=== PATIENT | female | born 1970 | race Caucasian/White ===

== ENCOUNTER 2020-10-17 04:11 | Emergency (ER) | payer BC, SELFPAY ==
[2020-10-17 04:17] VITALS: BP 179/105; PULSE 78; RESP 18; TEMP 36.4; O2SAT 94
--- NOTE | 2020-10-17 04:21 | ED.GENADUL_ITS ---
Discharge Plan Disposition Patient Disposition: HOME Condition: Stable Discharge Details Clinical Impression: Retained tampon Primary Care Provider: None,None ED Provider: Robin Elliott Home Meds and New Rx's Prescriptions: Continued ibuprofen 800 MG tablet 800 mg PO Q8H PRNQty: 20 RF: 0 Discharge Instructions Additional Instructions: follow up with your primary care provider or women's wellness provider as needed if you have severe abdomen pain or feel more ill return to the emergency department Medical Decision Making patient states she has a tampon she can't remove and here to have it removed, denies fevers, abdomen pain or other symptoms, appears well systemically. Will have nursing set up for attempt at removal . States she placed the tampon in last night I had the patient relax her legs to the side on the stirrups and visualizes tampon string coming out of the vagina. With gentle traction I was able to remove intact tampon. Remains asymptomatic, will d/c home HPI General Mode of arrival: ambulatory . Date/Time Provider Initiated Documentation: 10/17/20 04:12 . Limitations to Documentation: no limitations . Information obtained by: patient . History of Present Illness 50 year old F presents to the emergency department with the chief complaint of stuck tampon, described as moderate, and it has been constant. No relieving factors improve symptom(s), No exacerbating factors reported . Patient notes no other symptoms.. 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: 3 Review of Systems All systems reviewed & are unremarkable except as noted in HPI and below Constitutional Constitutional: Denies chills, Denies fever(s) and Denies weakness Cardiovascular Cardiovascular: Denies chest pain and Denies dyspnea Respiratory Respiratory: Denies cough and Denies dyspnea Gastrointestinal Gastrointestinal: Denies abdominal pain, Denies nausea and Denies vomiting Musculoskeletal Musculoskeletal: Denies joint swelling Neurologic Neurologic: Denies weakness PFSH Social History Smoking/Tobacco Use Status: Never Smoking risk assessment performed?: Yes Alcohol Intake: current Alcohol Intake frequency: a few times a month Drug use: Never Do you feel safe at home: Yes Do you feel safe in your relationship?: Yes Exam Const General: no acute distress Orientation: alert HENMT Head: normal to inspection Ears: external ears normal General nose exam: external nose normal Mouth: moist mucous membranes Eyes General: appearance normal, both eyes and all related structures Neck Neck: normal visual inspection Resp Effort & Inspection: normal respiratory effort and able to speak in complete sentences Cardio Rate: regular rate GI Palpation: soft and nontender Skin General skin exam: no rashes or lesions noted Neuro General: patient alert and patient oriented x3 Extrem General: normal to inspection Psych Mental Status: mental status grossly normal Course Vital Signs Vital signs: Vital Signs Temperature 36.4 C L 10/17/20 04:17 Pulse 78 10/17/20 04:17 Respiratory Rate 18 10/17/20 04:17 Blood Pressure 179/105 H 10/17/20 04:17 Pulse Oximetry 94 10/17/20 04:17 Temperature 36.4 C L 10/17/20 04:17 Temperature Source Skin 10/17/20 04:17 Pulse 78 10/17/20 04:17 Respiratory Rate 18 10/17/20 04:17 Blood Pressure 179/105 H 10/17/20 04:17 Pulse Oximetry 94 10/17/20 04:17 Pain Level 3 10/17/20 04:17
[2020-10-17 04:38] VITALS: BP 171/99
== END 2020-10-17 04:40 | disposition home or self-care (01) ==
PROVIDERS: Emergency Provider Emergency Medicine
DX: T19.2XXA Foreign body in vulva and vagina, initial encounter (principal)
CPT/HCPCS: 99284; 99283

== ENCOUNTER 2021-08-06 22:26 | Emergency (ER) | payer BC, SELFPAY ==
--- NOTE | 2021-08-06 22:30 | DI.RAD_ITS ---
Exam(s) XR ANKLE RT COMPLETE EXAM: XR ANKLE RT COMPLETE CLINICAL HISTORY: trauma. TECHNIQUE: 2D digital imaging was performed. COMPARISON: No exams were available for comparison FINDINGS: There is a fractures seen extending obliquely through the distal fibula with some dorsal displacement and angulation. There is also fracture visible of the posterior malleolus extending to the articula r surface. There is posterior subluxation of the talus with respect to the distal tibia. There is m arked widening of the medial ankle mortise. No talar dome defect is seen. There are degenerative ch anges at the malleoli with chronic appearing adjacent bony densities. There are prominent calcaneal spurs. Degenerative changes are also noted in the tarsal region. IMPRESSION: Distal tibial and fibular fractures with posterior subluxation of the talus. DATA REPOSITORY: RADIATION DOSE DELIVERED:
--- NOTE | 2021-08-06 22:30 | RT.EKG_ITS ---
APPROVED REPORT Exam: Resting ECG Reason for Exam: pre-procedure Patient Location: E HR:78 bpm ECG Measurements Heart Rate 78 AXIS HI 167 P 48 QRSd 98 QRS -51 QT 384 T 53 QTc 438 Conclusion Sinus rhythm...normal P axis, V-rate 60- 99 Left anterior fascicular block...axis(240,-40), init forces inf ST elev, probable normal early repol pattern...ST elevation, age<54 I have reviewed and interpreted ECG and agree with software generated interpretation.
[2021-08-06 22:33] VITALS: BP 172/98; PULSE 88; RESP 20; TEMP 37; O2SAT 100
--- NOTE | 2021-08-06 22:43 | W.ED.GENAD ---
Discharge Plan Disposition Patient Disposition: HOME Condition: Stable Discharge Details Clinical Impression: Fracture of ankle, right, closed Primary Care Provider: None,None ED Provider: Matt Fernandezs and New Rx's Prescriptions: New hydrocodone-acetaminophen 5-325 mg tablet 1 tab PO Q6H PRNQty: 10 0RF Discontinued ibuprofen 800 MG tablet 800 mg PO Q8H PRNQty: 20 0RF Discharge Instructions Instructions: Ankle Fracture (ED), Crutch Instructions (ED) Additional Instructions: Keep your leg elevated and ice on/off throughout the day. May use acetaminophen or ibuprofen pain and the hydrocodone/acetaminophen for severe pain. Do not bear weight on the right. Use crutches. Call orthopedics in morning for follow up appointment. Return to ED for worsening pain, discolored toes, numbness to toes, other concerns. Stand Alone Forms: Work Release Referrals: Nakul Ortiz MD [ [facility] STAFF PHYSICIAN] - Medical Decision Making Patient presents to the ED with right ankle injury with obvious deformity. She is neurovascularly intact. IV established and morphine given for pain control. Labs and EKG done for preop evaluation. X-ray ordered. X-ray showed trimalleolar fracture with disruption of the mortise with subluxation of the joint. Fracture needed to be reduced before splinting and this was discussed with patient. Also discussed procedural sedation using fentanyl and Versed. She had last ate around 5 or 6 PM. Last had p.o. intake of soda at 10 PM. Laboratory studies and EKG look good. Patient was given a total of 300 mcg of fentanyl and 3 mg of Versed for reduction. Posterior splint applied. Post reduction x-ray with good results. Patient will be non-weightbearing and is to contact orthopedic in the morning for follow-up. She is instructed to keep her leg elevated and ice. She was given prescription for hydrocodone/acetaminophen for severe pain. Return to ED for uncontrolled pain, discolored toes, distal numbness. Lab Data Lab results reviewed: Yes I reviewed the patient's lab results. ECG Data Attestation: I personally reviewed and interpreted this ECG (s) as follows: Prior ECG tracings: available for review Interpretation: see EKG HPI General Mode of arrival: wheelchair. Date/Time Provider Initiated Documentation: 08/06/21 22:43. Limitations to Documentation: no limitations. Information obtained by: patient and RN notes reviewed. HPI Narrative: Patient presents to ED with right ankle injury. Patient reports slipping and falling outside on ice. She denies head strike. There was no loss of consciousness. She has pain, deformity, swelling to the right ankle. She denies injury elsewhere. Specifically she denies neck pain, back pain, chest pain, shortness of breath, other traumatic injury. Related Data Home Medications Medication Instructions Recorded Confirmed hydrocodone 5 mg-acetaminophen 325 1 tab PO Q6H PRN #10 tab 08/07/21 mg tablet Previous Rx's Medication Instructions Recorded hydrocodone 5 mg-acetaminophen 325 1 tab PO Q6H PRN #10 tab 08/07/21 mg tablet Allergies Allergy/AdvReac Type Severity Reaction Status Date / Time No Known Allergies Allergy Unverified 08/06/21 22:45 General THEODORE: 3 Review of Systems Narrative: As documented in HPI otherwise negative as below. Const: no fever, chills, weakness Resp: no cough, SOB, pleuritic pain CV: no CP, diaphoresis, edema, syncope GI: no abdominal pain, nausea, vomiting, diarrhea Neuro: no headache, numbness, focal weakness, confusion PFSH All Active Problems Fracture of ankle, right, closed (Acute) Medical History No significant past medical history Surgical History No significant past surgical history Social History Smoking/Tobacco Use Status: Never Smoking risk assessment performed?: Yes Alcohol Intake: current Alcohol Intake frequency: a few times a month Drug use: Never Do you feel safe at home: Yes Do you feel safe in your relationship?: Yes Exam Narrative Exam Narrative: Const: WDWN female in NAD. HEENT: NC/AT. Normal facial exam. Neck: Supple. Trachea midline. Lungs: Normal respiratory effort. Lungs are clear. Cor: RRR without murmur/gallop. Good distal pulses. GI: Soft. NT/ND. Back: Normal ROM Neuro: A+O x 3. Normal speech, mentation, gait. Cranial nerves II - XII grossly intact. No gross motor or sensory deficit. Ext: No C/C/E. Deformity and swelling around the right ankle. No tenderness proximal fibular head. No right foot tenderness. Neurovascularly intact distally. Skin: Warm and dry without laceration. Procedures Orthopedic Fracture Reduction Fracture #1: Time Out Performed: Yes Side: right Fracture Reduction Location: tibia and fibula Analgesia: procedural sedation Technique: traction/counter-traction Post Reduction X-rays Demonstrate: acceptable reduction Post-reduction neuro exam: intact and no change Post-reduction vascular exam: intact and no change Splint Applied: Yes Patient Tolerated Procedure: well Orthopedic Splinting/Casting Injury #1: Side: right Lower Extremity Injury Location: ankle Lower Extremity Immobilizer: posterior splint Other Orthopedic Equipment: walker Procedural Sedation Indication: fracture/dislocation reduction ASA Class: I Time of Last PO Intake: 22:00 Preparation: manager monitoring applied, pulse oximeter, capnometry used, supplemental O2 applied, suction/airway equipment at bedside and IV secured Fentanyl: IV Fentanyl dose (mcg): 300 Midazolam: IV Midazolam dose (mg): 3 Patient Tolerated Procedure: well and no complications Complications: none
[2021-08-06] MEDS: MORPHine 4 MG/ML SYR IVP (22:56)
[2021-08-06 23:07] LABS: Abs Immature Grans 0.03 10^3/uL (0.0-0.06); Absolute Basophil Count 0.05 10^3/uL (0.0-0.2); Absolute Eosinophil Count 0.25 10^3/uL (0.0-0.7); Absolute Lymphocyte Count 2.45 10^3/uL (1.2-3.4); Absolute Monocyte Count 0.84 10^3/uL (0.1-0.8); Basophils % 0.6; Eosinophils % 3.2; HCT 40.8 % (36.0-46.0); HGB 12.3 g/dL (11.2-15.7); Immature Grans % 0.4; Lymphocytes % 31.7; MCH 25.6 pg (27.0-33.0); MCHC 30.1 % (32.0-36.0); MCV 84.8 fL (80-95); MPV 9.6 fL (8.0-11.0); Monocytes % 10.9; Neutrophils % 53.2; Nucleated RBC 0 %; Platelet Count 405 10^3/uL (130-400); RBC 4.81 10^6/uL (3.93-5.22); RDW 14.1 % (11.7-14.6); RDW-SD 43.5 fL; WBC 7.72 10^3/uL (4.4-10.8)
[2021-08-06 23:21] LABS: ALT 25 U/L (14-59); AST 21 U/L (15-37); Albumin 3.1 g/dL (3.4-5.0); Alkaline Phosphatase 118 U/L (46-116); Anion Gap 7.3 mmol/L (3-11); BUN 11 mg/dL (7-18); Bilirubin, Total 0.2 mg/dL (0.2-1.0); CO2 27.7 mmol/L (21.0-32.0); CREATININE 0.9 mg/dL (0.55-1.02); Calcium 8.4 mg/dL (8.5-10.1); Chloride 107 mmol/L (98-107); Glucose 110 mg/dL (74-106); Potassium 3.9 mmol/L (3.5-5.1); Sodium 142 mmol/L (136-145); Total Protein 7.4 g/dL (6.4-8.2)
--- NOTE | 2021-08-06 23:44 | DI.VRAD_ITS ---
Addendum created by Kurt Collins MD on 08/07/2021 12:26:58 AM EST: Possible fractures of the Achilles and plantar spurs. Initial report created on 08/06/2021 11:43:55 PM EST: PROCEDURE INFORMATION: Exam: XR Right Ankle Exam date and time: 08/06/2021 10:46 PM Age: 51 years old Clinical indication: Pain; Ankle; Right; Patient HX: Trauma TECHNIQUE: Imaging protocol: XR Right ankle. Views: 3 or more views. COMPARISON: No relevant prior studies available. FINDINGS: Bones/joints: There is evidence of prior bimalleolar right ankle fractures. There is a superimpose acute fracture of the distal right fibula. There is an acute fracture of the posterior malleolus of the right tibia. There is disruption of the ankle mortise with the distraction and subluxation of the tibia. Noninflamed enthesophyte seen within the region of the Achilles tendon.There is a noninflamed plantar enthesophyte. Osteophyte at the level of the dorsal tarsus may represent anterior impingement syndrome. Soft tissues: There is extensive soft tissue swelling of the right ankle. There is soft tissue swelling of the distal right lower leg. Vasculature: There are venous calcifications present. IMPRESSION: 1. There is a superimposed acute fracture of the distal right fibula. There is an acute fracture of the posterior malleolus of the right tibia. There is disruption of the ankle mortise with the distraction and subluxation of the tibia. 2. Osteophyte at the level of the dorsal tarsus may represent anterior impingement syndrome. 3. There is extensive soft tissue swelling of the right ankle. 4. There is soft tissue swelling of the distal right lower leg. Dictated and Authenticated by: Kurt Collins MD. Ordering:JOSE Gutierrez MD
[2021-08-06] MEDS: fentaNYL 250 MCG/5 ML VIAL ×4 (23:51→23:58)
[2021-08-06] MEDS: Midazolam 2 MG/2 ML VIAL 3 MG IVP ×2 (23:53→23:56)
[2021-08-07] VITALS (15 sets, daily range): BP systolic 129–174; BP diastolic 70–104; PULSE 79–101; RESP 11–19; O2SAT 95–98
[2021-08-07] MEDS: Midazolam 2 MG/2 ML VIAL 3 MG IVP
--- NOTE | 2021-08-07 | DI.RAD_ITS ---
Exam(s) XR ANKLE RT 2V EXAM: XR ANKLE RT 2V CLINICAL HISTORY: Post-reduction film.. TECHNIQUE: 2D digital imaging was performed. COMPARISON: CR,XR XR ANKLE RT COMPLETE from 08/06/2021 FINDINGS: AP and lateral portable views were performed. There has been improvement in the alignment of the dis mansoor fibular fracture as well as reduction of the previously noted posterior subluxation of the talus with respect to the tibia. There is improved alignment of the posterior malleolar fracture. Soft ti ssue swelling is again noted. There are chronic bony density seen beneath the malleoli. Prominent calcaneal spurs. IMPRESSION: Improvement of alignment of distal tibial and fibular fractures and subluxation. DATA REPOSITORY: RADIATION DOSE DELIVERED:
[2021-08-07] MEDS: fentaNYL 250 MCG/5 ML VIAL ×2 (00:01→00:06)
--- NOTE | 2021-08-07 00:15 | DI.RAD_ITS ---
Exam(s) XR ANKLE RT COMPLETE EXAM: XR ANKLE RT COMPLETE CLINICAL HISTORY: post reduction/splinted. TECHNIQUE: 2D digital imaging was performed. COMPARISON: CR,XR XR ANKLE RT 2V from 08/07/2021 FINDINGS: A posterior splint has been placed. The distal fibular fracture is unchanged in alignment from the p ortable exam performed earlier the same day. Chronic bony densities are again noted beneath both mal leoli. There is widening of the medial ankle mortise. Soft tissue swelling is present. There are p rominent plantar calcaneal spur as well as spurring at the dorsum of the tarsal region.. IMPRESSION: Status post splint placement. No change in alignment. DATA REPOSITORY: RADIATION DOSE DELIVERED:
--- NOTE | 2021-08-07 00:26 | DI.VRAD_ITS ---
PROCEDURE INFORMATION: Exam: XR Right Ankle Exam date and time: 08/07/2021 12:17 AM Age: 51 years old Clinical indication: Other: Post-reduction film TECHNIQUE: Imaging protocol: XR Right ankle. Views: 1 or 2 views. COMPARISON: CR XR ANKLE RT COMPLETE 08/06/2021 11:11 PM FINDINGS: Bones/joints: There is been marked improvement alignment position of the fractures of the right ankle. Minimal displacement present at the fibular fracture and improved appearance to the ankle mortise. Old chronic fractures again are evident. Fractures of the the plantar and Achilles tendon attachments may be present although these may be chronic findings as well. Soft tissues: There is extensive soft tissue swelling of the right foot and ankle. IMPRESSION: Improvement in appearance of the right ankle fracture status post reduction. Dictated and Authenticated by: Kurt Collins MD. Ordering:JOSE Gutierrez MD
--- NOTE | 2021-08-07 00:45 | DI.VRAD_ITS ---
PROCEDURE INFORMATION: Exam: XR Right Ankle Exam date and time: 08/07/2021 12:25 AM Age: 51 years old Clinical indication: Device placement; Other: Post-reduction, splinted RT ankle TECHNIQUE: Imaging protocol: XR Right ankle. Views: 3 or more views. COMPARISON: CR XR ANKLE RT 2V 08/07/2021 12:00 AM FINDINGS: Bones/joints: The patient is been placed in a dorsal splint. There is marked improvement in the appearance of the fibular fracture fracture of the tibia and dislocation at the level of the tibial plateau. Possible plantar and Achilles tendon spurs and dorsal tarsal osteophytes again visualized. Soft tissues: There is soft tissue swelling. No evidence of radiopaque foreign body. IMPRESSION: The patient is been placed in a dorsal splint. There is marked improvement in the appearance of the fibular fracture fracture of the tibia and dislocation at the level of the tibial plateau. Dictated and Authenticated by: Kurt Collins MD. Ordering:JOSE Gutierrez MD
== END 2021-08-07 01:44 | disposition home or self-care (01) ==
PROVIDERS: Emergency Provider Emergency Medicine
DX: S82.851A Displaced trimalleolar fracture of right lower leg, initial encounter for closed fracture (principal); W00.0XXA Fall on same level due to ice and snow, initial encounter
CPT/HCPCS: 27818; 36415; 80053; 93005; 73600; 73610; 85025; 93010; J2250; J2270; J3010

== ENCOUNTER 2021-08-08 10:23 | Outpatient (CLI) | payer BC, SELFPAY ==
[2021-08-08 11:59] LABS: Source Nasal/Nares
[2021-08-08 16:21] LABS: COVID-19 PCR Negative (Negative)
== END 2021-08-08 10:24 | disposition home or self-care (01) ==
LOC: LBO 10:23
PROVIDERS: Student in an Organized Health Care Education/Training Program; Visit Provider Student in an Organized Health Care Education/Training Program
DX: Z20.822 Contact with and (suspected) exposure to COVID-19 (principal); Z01.818 Encounter for other preprocedural examination
CPT/HCPCS: 87635

== ENCOUNTER 2021-08-10 08:25 | Day surgery (SDC) | payer BC, SELFPAY ==
[2021-08-10] VITALS (10 sets, daily range): BP systolic 113–163; BP diastolic 54–93; PULSE 63–84; RESP 12–20; TEMP 36.2–36.9; O2SAT 94–98; BMI 39.9
--- NOTE | 2021-08-10 08:15 | DI.RAD_ITS ---
Exam(s) XR ANKLE RT 2V EXAM: XR ANKLE RT 2V CLINICAL HISTORY: displaced right trimalleolar ankle fracture TECHNIQUE: 2D and realtime digital imaging was performed. COMPARISON: CR,XR XR ANKLE RT COMPLETE from 08/06/2021 FINDINGS: C-arm fluoroscopy was utilized by Dr. Silver during reduction internal fixation of the previously note d tibiofibular fracture. Hard copies show plate and screw fixation the fibula and suture fixation of the tibiofibular joint. IMPRESSION: RADIATION DOSE DELIVERED: winnie Houston=0.49 mGy
[2021-08-10] MEDS: Lactated Ringers 1,000 ML 100 ML IV (09:00)
--- NOTE | 2021-08-10 09:05 | W.ANESPRE ---
General Info Date of Service Date Performed: 08/10/21 Height: 5 ft 6 in Weight: 112.1 kg Body Mass Index (BMI): 39.9 Surgical Procedure: Operation Date: 08/10/21 10:10 Proposed Procedure Side Surgeon p Ankle ORIF and Syndesmosis Right Pedro Silver MD Meds Allergies and Home Medications Allergies Allergy/AdvReac Type Severity Reaction Status Date / Time No Known Allergies Allergy Unverified 08/10/21 08:38 Home Medication Medication Instructions Recorded KNEE SCOOTER #1 ea 08/08/21 aspirin 81 mg tablet,delayed 81 mg PO BID 30 Days #60 tab 08/10/21 release naproxen 250 mg tablet 250 - 500 mg PO BID PRN #40 tab 08/10/21 oxycodone 5 mg tablet 5 - 10 mg PO Q4H PRN #18 tab MDD 08/10/21 30 mg Current Visit Medications: Current Medications Generic Name Dose Route Start Last Admin Trade Name Freq PRN Reason Stop Dose Admin Ringer's Solution 1,000 mls @ 100 mls/hr 08/10/21 06:00 IV 09/08/21 23:59 INFUSION ELIAZAR Cefazolin Sodium 3,000 mg/ 100 mls @ 200 mls/hr 08/10/21 06:00 Sodium Chloride IVPB 08/10/21 16:00 PREOP ELIAZAR IV Miscellaneous Supplies 1 each 08/10/21 06:00 Iv Access IV 09/08/21 23:59 DIRECTED ELIAZAR Sodium Chloride 0 ml 08/10/21 06:00 Normal Saline Flush 10 Ml Syr IV 09/08/21 23:59 PRN PRN Sodium Chloride 0 ml 08/10/21 06:00 Normal Saline 10 Ml Vial IJ 09/08/21 23:59 DIRECTED PRN Sterile Water 0 ml 08/10/21 06:00 Water,Injection,Sterile 10 Ml Vial IJ 09/08/21 23:59 DIRECTED PRN PFSH Active Problems Active Problems: Problem Status Onset Code Fracture of ankle, right, closed 08/06/21 S82.891A Syndesmotic disruption of right ankle S93.431A Medical History Medical History No significant past medical history Surgical History Surgical History Hx of appendectomy No significant past surgical history Tobacco Smoking/Tobacco Use Status: Never Alcohol Alcohol Intake: current Alcohol intake frequency: a few times a month Substance Use Substance use: Never Substance use type: does not use Vital Signs and Lab Results Vital Signs Most Recent Vital Signs in EMR: Most Recent Vital Signs Temp Pulse Resp BP Pulse Ox 36.5 C 84 18 150/90 H 98 08/10/21 08:51 08/10/21 08:51 08/10/21 08:51 08/10/21 08:51 08/10/21 08:51 Point of Care Results Point of Care Results: POC- Test(urine) Negative 08/10/21 08:54 Lab Results Blood Type / Crossmatch: No Data to Display Complete Blood Count: White Blood Count 7.72 10^3/uL (4.4-10.8) 08/06/21 22:45 08/06/21 Red Blood Count 4.81 10^6/uL (3.93-5.22) 08/06/21 22:45 08/06/21 Hemoglobin 12.3 g/dL (11.2-15.7) 08/06/21 22:45 08/06/21 Hematocrit 40.8 % (36.0-46.0) 08/06/21 22:45 08/06/21 Platelet Count 405 10^3/uL (130-400) H 08/06/21 22:45 08/06/21 Complete Metabolic Panel: Sodium Level 142 mmol/L (136-145) 08/06/21 22:45 08/06/21 Potassium Level 3.9 mmol/L (3.5-5.1) 08/06/21 22:45 08/06/21 Chloride Level 107 mmol/L (98-107) 08/06/21 22:45 08/06/21 Carbon Dioxide Level 27.7 mmol/L (21.0-32.0) 08/06/21:45 08/06/21 Blood Urea Nitrogen 11 mg/dL (7-18) 08/06/21 22:45 08/06/21 Creatinine 0.9 mg/dL (0.55-1.02) 08/06/21 22:45 08/06/21 Estimated GFR/1.73 m2 >= 60.00 (mL/min/1.73m2) 08/06/21 22:45 08/06/21 Calcium Level 8.4 mg/dL (8.5-10.1) L 08/06/21 22:45 08/06/21 Albumin 3.1 g/dL (3.4-5.0) L 08/06/21 22:45 08/06/21 Glucose Level 110 mg/dL (74-106) H 08/06/21 22:45 08/06/21 Liver Function Panel: Alanine Aminotransferase (ALT/SGPT) 25 U/L (14-59) 08/06/21 22:45 08/06/21 Aspartate Amino Transf (AST/SGOT) 21 U/L (15-37) 08/06/21 22:45 08/06/21 Coagulation Panel: No Data to Display Cardiac Panel: No Data to Display Arterial Blood Gas: No Data to Display Venous Blood Gas: No Data to Display Pancreas Panel: No Data to Display Thyroid Panel: No Data to Display Infectious Disease: Coronavirus (COVID-19)(PCR) Negative (Negative) 08/08/21 10:10 08/08/21 Coronavirus 2019 Source Nasal/Nares 08/08/21 10:10 08/08/21 Blood Cultures: No Data to Display Toxicology Panel: No Data to Display Panel: No Data to Display Imaging and Studies Imaging and Studies Study information below may be from another EMR and interpreted by another provider. Please see original notes in EMR for more complete details. EKG Summary: Conclusion Sinus rhythm...normal P axis, V-rate 60- 99 Left anterior fascicular block...axis(240,-40), init forces inf ST elev, probable normal early repol pattern...ST elevation, age<55 I have reviewed and interpreted ECG and agree with software generated interpretation. Anesthesia Assessment and Plan Anesthesia History Personal History: No History of Anesthesia Complications Family History: No Family History of Anesthesia Complications Exercise Tolerance Exercise Tolerance: Metabolic Equivalents>4 Pertinent Negatives Pertinent Negatives: No Symptoms of GERD, No Major Cardiovascular Symptoms or Complaints, No Major Pulmonary Symptoms or Complaints and No History of CVA/TIA Cardiac & Pulmonary Exam Cardiac Exam: Normal S1/S2 Heart Sounds Pulmonary Exam: Clear Bilateral Breath Sounds and No cough or Cold Implantable Cardiac Device Does patient have a Pacemaker or an ICD?: No Airway Exam Known Difficult Airway: No Mallampati Class: 3 Mouth Opening: Normal (> 3cm) Thyromental Distance: Greater than 3 cm Neck Range of Motion: Full ROM Neck Circumference: Normal Teeth Condition: Normal Dentition ASA Classification ASA Score: ASA 2 Emergency Case?: No NPO Status NPO Status: NPO Clears >2 hours, Solids >8 hours Status Status: Not Relevant due to Medical History Anesthesia Plan Resuscitation Status: Full Code Anesthesia Technique: Spinal Anesthesia Airway Planned: Natural Airway Pain Management: Surgeon and patient request nerve block Monitors Used: Standard Monitors
[2021-08-10] MEDS: ceFAZolin 3,000 MG in Normal Saline 100 ML 200 MG IVPB (10:23)
--- NOTE | 2021-08-10 11:02 | W.ANESNERVE ---
Nerve Block Single Injection Procedure Date and Time Date Performed: 08/10/21 Procedure Start: 09:30 Location Where Procedure Performed Procedure Location: Day Surgery Unit Reason Performed: Postoperative Analgesia Requesting Provider: Pedro Silver Timeout Performed Timeout Performed: Yes Monitoring Used ECG, Blood Pressure, SpO2 and See EMR for corresponding vital signs Sterility Sterility: Hand Hygiene, Surgical Cap, Surgical Mask, Sterile Gloves, Sterile Drape/Sheet, Eye Protection and Chlorhexidine Sedation Given During Procedure Sedation Given (Indicate Dose Given): Versed IV Dose:: 2mg Patient Mental Status Patient Mental Status: Awake Nerve Block 1st Nerve Block: Laterality: Right Block Type: Popliteal Sciatic Needle / Catheter Used: 100mm SonoPlex II Local Anesthetic Bolus (Indicate Dose Given): Lidocaine used for local infiltration of skin, Injected in 3-5ml increments after negative blood aspiration, Bupivacaine 0.5% Dose:: 20mL and Exparel Dose:: 10mL Additives (Indicate Dose Given): None Ultrasound: Sterile probe cover and gel used Ultrasound Image Saved?: Yes Nerve Stimulator: Not Used Paresthesia: None Procedure Tolerated: No Complications Procedure Outcome: Successful Performed By: Emma Vallejo
[2021-08-10] MEDS: Bupivacaine 0.25% Pres-Free 30 ML VIAL (11:19)
--- NOTE | 2021-08-10 11:46 | W.PM.DSUDISC ---
Discharge Plan Disposition Patient Disposition: HOME Condition: Stable Discharge Details Reason For Visit: Right ankle surgery Attending Provider: Pedro Silver Primary Care Provider: None,None Home Meds and New Rx's Prescriptions: New naproxen 250 mg tablet 250 - 500 mg PO BID PRNQty: 40 0RF Rx Instructions: take with a meal aspirin 81 mg tablet,delayed release (DR/EC) 81 mg PO BID 30 Days Qty: 60 0RF oxycodone 5 mg tablet 5 - 10 mg PO Q4H MDD 30 mg PRN (Reason: moderate to severe pain) Qty: 18 0RF Discontinued acetaminophen [Tylenol] 325 mg capsule 325 mg PO ONCE PRN0RF ibuprofen [Advil] 200 mg tablet 200 mg PO Q6H PRN0RF hydrocodone-acetaminophen 5-325 mg tablet 1 tab PO Q6H PRNQty: 10 0RF No Action (DME) KNEE SCOOTER See Rx Instructions .Route .MEDSUPPLY Qty: 1 0RF Rx Instructions: NON WEIGHT BEARING Discharge Instructions Additional Instructions: Surgery: Right ankle and syndesmosis ORIF Activity: Non-weightbearing at all times. May use crutches, walker, or knee scooter. Recommend elevation to minimize swelling and discomfort. Wiggle toes to minimize stiffness and aid circulation. A physical therapy prescription will be provided separately in the office at follow-up when appropriate. Prescriptions: Aspirin 81 mg take 1 twice daily to prevent a blood clot for 30 days Naproxen 250 mg take 1-2 every 12 hours with a meal as needed for moderate pain Oxycodone 5 mg take 1-2 every 4-6 hours as needed for severe pain You may use [id number] Tylenol (acetaminophen) as needed for mild pain. These pain medications may be taken all at once or in different combinations as needed. Also, recommend Colace (docusate) as a stool softener as surgery and pain medicine cause constipation. Dressings: Leave splint and dressing in place until follow-up. Keep clean and dry at all times. Follow-up: 10-[address] Silver Let us know right away if you develop any redness, drainage, fevers, chest pain, or trouble breathing. Do not drink alcohol or drive for at least 24 hours after anesthesia. Please call the office during business hours with any questions or concerns. Referrals: Pedro Silver MD [ [facility] STAFF PHYSICIAN] - 08/23/21 9:00 am Discharge Orders Discharge Orders: Discharge Order (Routine); Ordered 08/10/21 Ordered By: Pedro Silver DS: Diagnosis Discharge Diagnosis (1) Fracture of ankle, right, closed: Status: Acute (2) Syndesmotic disruption of right ankle: Status: Acute
--- NOTE | 2021-08-10 12:01 | ROE_ITS ---
Operative Note Operative Note DATE OF PROCEDURE: 08/10/21 PRE-OP DIAGNOSIS: 1. Right trimalleolar displaced ankle fracture 2. Right ankle syndesmosis disruption POST-OP DIAGNOSIS: same PROCEDURE: Right ankle 1. Open treatment trimalleolar fracture without posterior fixation CPT #31224 2. Open treatment syndesmosis disruption, CPT #18226 SURGEON: Pedro Silver GRINDER AND HONER OPERATOR AUTOMATIC: Mike Ogden ANESTHESIA TYPE: Local By Surgeon, Spinal and Primary Nerve Block Refer to Anesthesia Record ESTIMATED BLOOD LOSS: 15 TOURNIQUET TIME: 0 Patient was transported to: PACU Patient's condition: stable Implants: Synthes 8 hole one third tubular plate with 4x 3.5 mm bicortical cortex screws, 1x 4.0 mm cancellous screw, and 1x Arthrex syndesmosis TightRope Indications: Please see complete medical record for details. Procedure Description: In the operating room, spinal anesthesia was induced. The patient was pos itioned supine on the operating room table. All bony prominences were well- padded. Preoperative antibiotics were administered. The right ankle was prepped and draped in the usual sterile fashion. The correct patient, procedure, and side of the procedure were all verified prior to incision. The ankle was inspected and varus anterior drawer and instrumentation used to provisionally reduce the ankle mortise with some lateral displacement and shortening of the distal fibula. Plan was confirmed for isolated lateral approach fibula ORIF and lateral to medial syndesmosis fixation as needed. The fracture site was localized fluoroscopically and local anesthetic with epinephrine infiltrated along the planned lateral approach to the fibula proximally and distally. Sharp dissection was carried through the skin and subcutaneous tissue and the fracture site was exposed. Care was taken to elevate periosteum and soft tissue distally as needed as well as expose the fracture edge margins without devitalizing too much tissue. More approximately care was taken with dissection to view any crossing nerve, which was not found. The fracture ends were mobilized manually and with bone forceps with an excellent fracture ferraro restoring length and rotation. There were a number of pieces of posterior segmental comminution that limited any lag screw fixation. Instead, suture tape cerclage was passed doubled over the reduced fracture site and secured in a Nice knot fashion. The bone clamp was removed and the reduction was maintained. Provisional fluoroscopy confirmed excellent fibular reduction and mortise alignment as well as acceptable position and reduction of the posterior small malleolus fracture. An appropriate length plate was applied to the lateral fibula skipping the 2 holes over the fracture area and centered over the bone with a bicortical screw distal and proximal to the fracture site. The most distal screw hole was then drilled carefully just barely bicortically and a cancellous screw placed in this position taking care to avoid the ankle joint. The remaining distal screw hole was admitted for planned syndesmosis fixation. More proximally an additional 2 bicortical cortex screws were placed. X-rays confirmed appropriate distal fibula reduction and hardware placement. Mortise and external rotation stress radiographs were compared with the ankle in dorsiflexion, which confirmed moderate widening of the medial clear space and loss of tib-fib overlap. The ankle was positioned in neutral and at the appropriate height and parallel positioned across from lateral to medial and targeting the central position medially the drill was placed through the remaining hole in the plate exiting the medial distal tibia cortex appropriately. The tight rope device was then passed through the drilled without any interposed tissue and flipped with digital assistance into correct position on the cortex. The self locking tension device was then applied moderately. Ankle range of motion was performed. Mortise dorsiflex neutral and external rotation stress views were compared and final tightening was applied to the device showing well-maintained ankle mortise and maintenance of tib-fib overlap. Extra knots were tied over the knotless device. Final x-rays were obtained. No additional syndesmosis fixation or tight rope devices were indicated. The medial malleolus tip and small posterior malleolus fractures were acceptably aligned. The wound was copiously irrigated normal saline. Deep tissue was closed over the plate centrally using 2-0 Monocryl. Subcutaneous tissue closed with 2-0 Monocryl buried in fashion. Skin was closed using 3-0 nylon in a mattress fashion. Xeroform was applied over incision followed by sterile gauze and soft roll. A short leg plaster splint was appropriately molded padded and applied to the extremity maintaining the foot and ankle in neutral position. The patient awoke from anesthesia without complication and was transferred to the recovery room in a stable condition.
--- NOTE | 2021-08-10 14:29 | W.ANESPOSTOP ---
Postoperative Evaluation Date, Time and Location Date Performed: 08/10/21 Time Performed: 14:29 Patient Location: Day Surgery Unit Vital Signs Most Recent Imported Vital Signs: Most Recent Vital Signs Temp Pulse Resp BP Pulse Ox 36.5 C 81 16 144/87 H 95 08/10/21 13:50 08/10/21 13:50 08/10/21 13:50 08/10/21 13:50 08/10/21 13:50 Pain Score Most Recent Pain Score: Most Recent Pain Score Pain Level 0 08/10/21 13:50 Assessment Mental Status: Awake (Alert & Oriented to Patient Baseline) Airway and Respiratory Function: Patent airway with normal (patient baseline) respiratory exam Cardiovascular Function: Hemodynamically Stable Hydration Status: Adequately Hydrated Nausea & Vomiting: No Nausea or Vomiting Pain: Pt. Denies Any Pain Peripheral Nerve Block: Regional nerve block not resolved at time of post operative discharge
== END 2021-08-10 15:10 | disposition home or self-care (01) ==
PROVIDERS: Visit Provider Student in an Organized Health Care Education/Training Program
PROC: (CPT 27822; principal; 2021-08-10 10:00)
DX: S93.431A Sprain of tibiofibular ligament of right ankle, initial encounter (principal); S82.851A Displaced trimalleolar fracture of right lower leg, initial encounter for closed fracture; X58.XXXA Exposure to other specified factors, initial encounter
CPT/HCPCS: 27822; 27829; 76942; 81025; 73600; J0690; J1100; J1885; J2001; J2250; J2405

== ENCOUNTER 2021-08-23 09:34 | Outpatient (CLI) | payer BC, SELFPAY ==
--- NOTE | 2021-08-23 09:15 | DI.RAD_ITS ---
Exam(s) XR ANKLE RT COMPLETE EXAM: XR ANKLE RT COMPLETE CLINICAL HISTORY: right ankle f/u. TECHNIQUE: 2D digital imaging was performed. COMPARISON: CR,XR XR ANKLE RT 2V from 08/07/2021 CR,XR XR ANKLE RT COMPLETE from 08/07/2021 FINDINGS: 3 views There has been interval ORIF with placement of a lateral fixation plate across the distal fibular fra cture site secured by multiple screws and there is a horizontal syndesmotic channel also created with the securing plate at the level of the cortex on the medial side of the distal tibia. There also ap pears to be a posterior malleolus fracture. Large inferior calcaneal spur noted as well as calcification in the plantar fascia adjacent spur. Al so prominent Achilles insertional enthesophyte IMPRESSION: DATA REPOSITORY: RADIATION DOSE DELIVERED:
== END 2021-08-23 09:35 | disposition home or self-care (01) ==
LOC: DIORS 09:34
PROVIDERS: Visit Provider Student in an Organized Health Care Education/Training Program
DX: S82.891A Other fracture of right lower leg, initial encounter for closed fracture (principal); X58.XXXA Exposure to other specified factors, initial encounter
CPT/HCPCS: 73610

== ENCOUNTER 2021-10-04 09:25 | Outpatient (CLI) | payer BC, SELFPAY ==
--- NOTE | 2021-10-04 09:00 | DI.RAD_ITS ---
Exam(s) XR ANKLE RT COMPLETE EXAM: XR ANKLE RT COMPLETE CLINICAL HISTORY: right ankle f/u. TECHNIQUE: 2D digital imaging was performed. Three views. COMPARISON: CR XR ANKLE RT COMPLETE from 08/23/2021 FINDINGS: There has been no change in the hardware or fracture alignment. The ankle mortise is not widened. D egenerative changes and large heel spurs are seen. No new abnormalities. Decreased soft tissue swel ling. DATA REPOSITORY: RADIATION DOSE DELIVERED:
== END 2021-10-04 09:26 | disposition home or self-care (01) ==
LOC: DIORS 09:25
PROVIDERS: Visit Provider Student in an Organized Health Care Education/Training Program
DX: S92.131D Displaced fracture of posterior process of right talus, subsequent encounter for fracture with routine healing (principal); W01.0XXD Fall on same level from slipping, tripping and stumbling without subsequent striking against object, subsequent encounter
CPT/HCPCS: 73610

== ENCOUNTER 2021-11-22 09:38 | Outpatient (CLI) | payer BC, SELFPAY ==
--- NOTE | 2021-11-22 09:15 | DI.RAD_ITS ---
Exam(s) XR ANKLE RT COMPLETE EXAM: XR ANKLE RT COMPLETE CLINICAL HISTORY: RIGHT ANKLE F/U. TECHNIQUE: 2D digital imaging was performed. Three images were obtained. AP, lateral and oblique vi ews were obtained. COMPARISON: CR XR ANKLE RT COMPLETE from 10/04/2021 FINDINGS: BONES: There are stable post operative changes present. No new fracture or dislocation. There is a l arge plantar calcaneal spur. There is a large enthesophyte at the Achilles insertion site. There ar e several well corticated osseous densities at the tips of both the medial and lateral malleoli which appear old. JOINTS: The joint spaces are well maintained. No joint effusion is present. SOFT TISSUE: Normal. IMPRESSION: Stable postoperative changes. DATA REPOSITORY: RADIATION DOSE DELIVERED:
== END 2021-11-22 09:39 | disposition home or self-care (01) ==
LOC: DIORS 09:38
PROVIDERS: Visit Provider Student in an Organized Health Care Education/Training Program
DX: S93.431A Sprain of tibiofibular ligament of right ankle, initial encounter (principal); X58.XXXA Exposure to other specified factors, initial encounter; Z98.890 Other specified postprocedural states
CPT/HCPCS: 73610

== ENCOUNTER 2022-04-10 21:37 | Outpatient (REF) | payer BC, SELFPAY ==
[2022-04-12 12:10] LABS: COVID-19 RT-PCR UVMMC Result Negative (Negative)
== END 2022-04-10 21:38 | disposition home or self-care (01) ==
LOC: LBN 21:37
PROVIDERS: Visit Provider Nurse Practitioner Family
DX: Z20.822 Contact with and (suspected) exposure to COVID-19 (principal); J02.9 Acute pharyngitis, unspecified
CPT/HCPCS: U0003

== ENCOUNTER → 2023-03-29 00:44 | Outpatient (CLI) | payer BC, SELFPAY ==
--- NOTE | 2023-03-29 07:45 | DI.MAMMO_ITS ---
Exam(s) MAMMO SCREENING EXAM: MAMMO SCREENING CLINICAL HISTORY: screening,z12.39 TECHNIQUE: Mammograms were interpreted according to the usual protocol including computer analysis w [employer] CAD system, tomosynthesis and C-view imaging. COMPARISON: 2013 FINDINGS: The breasts are composed of scattered fibroglandular densities, Breast Density category B. No suspicious masses or suspicious microcalcifications are seen. No skin thickening or abnormal axillary lymph nodes are seen. There has been no significant change from prior exams. IMPRESSION: BI-RADS Category 1, Negative mammogram Yearly screening mammography is recommended. Breast Density - Category B, scattered fibroglandular densities. A negative radiographic report should not delay biopsy if a dominant or clinically suspicious mass is present. Up to ten percent of cancers are not identified on mammography. A negative report may reinforce clinical impression. Adenosis and dense breasts may obscure an underlying neoplasm. False positive reports average 6 to 10%. Patient will receive a letter notifying them of these results.
== END ==
PROVIDERS: PCP Nurse Practitioner Family; Visit Provider Nurse Practitioner Family
DX: Z12.31 Encounter for screening mammogram for malignant neoplasm of breast (principal); R92.323 Mammographic fibroglandular density, bilateral breasts
CPT/HCPCS: 77063; 77067

== ENCOUNTER 2023-04-08 10:51 | Outpatient (REF) | payer BC, SELFPAY ==
--- NOTE | 2023-04-08 10:40 | PAPFT_PTH ---
PATIENT: Beryl Ang LOC: [facility] U#:[id number] AGE/SX: 53/F ROOM: RE04/08/[address]: Samanta Goins MD : 1970 BED: DIS: 04/08/2023 SPEC #: [id number] RECD: 04/08/23 12:59 STATUS: UZIEL REDebra #: [id number] HAWK: 04/08/23 10:[address]: Samanta Goins DEPT: [facility] Cytology RECD BY: Quyen Almaguer ENTERED: 04/08/23 13:00 SP TYPE: PAPFT OTHR DR: Bella Fonseca, PATRICK Tissues: 1 - CX/ENDOCX FOR PAP SMEARS Procedures: PAP THIN PREP/UVM Screening HPV DNA PROBE Comments: [id number]
== END 2023-04-08 10:52 | disposition home or self-care (01) ==
LOC: LBN 10:51
PROVIDERS: PCP Nurse Practitioner Family; Visit Provider Obstetrics & Gynecology
DX: Z12.4 Encounter for screening for malignant neoplasm of cervix (principal); Z11.51 Encounter for screening for human papillomavirus (HPV)
CPT/HCPCS: 88142; 87624

== ENCOUNTER 2024-07-07 16:13 | Outpatient (REF) | payer BC, SELFPAY ==
--- NOTE | 2024-07-07 15:50 | PAPFT_PTH ---
PATIENT: Beryl Ang LOC: [facility] U#:[id number] AGE/SX: 54/F ROOM: RE07/07/[address]: Samanta Goins MD : 1970 BED: DIS: 07/07/2024 SPEC #: [id number] RECD: 07/07/24 17:42 STATUS: UZIEL REDebra #: [id number] HAWK: 07/07/24 15:[address]: Samanta Goins DEPT: [facility] Cytology RECD BY: Quyen Almaguer ENTERED: 07/07/24 17:43 SP TYPE: PAPFT OTHR DR: Bella Fonseca, PATRICK Tissues: 1 - CX/ENDOCX FOR PAP SMEARS Procedures: PAP THIN PREP/UVM Screening HPV DNA PROBE Comments: [id number] (HPV 16 & 18/45)
== END 2024-07-07 16:14 | disposition home or self-care (01) ==
LOC: LBN 16:13
PROVIDERS: PCP Nurse Practitioner Family; Visit Provider Obstetrics & Gynecology
DX: R87.618 Other abnormal cytological findings on specimens from cervix uteri (principal); Z01.419 Encounter for gynecological examination (general) (routine) without abnormal findings
CPT/HCPCS: 88142; 87624

== ENCOUNTER 2025-03-10 11:22 | Outpatient (CLI) | payer BC, SELFPAY ==
--- NOTE | 2025-03-10 11:22 | DI.RAD_ITS ---
Exam(s) XR KNEE LT 3V AP,LAT,RYAN EXAM: XR KNEE LT 3V AP,LAT,RYAN CLINICAL HISTORY: pain and swelling after fall, L KNEE INJURY S89.92XA. TECHNIQUE: 2D digital imaging was performed. COMPARISON: No exams were available for comparison FINDINGS: Four views No evidence of acute fracture or obvious joint effusion. There are danced degenerative osteoarthritic changes in the medial compartment with almost byhj-sj-urro narrowing; less so in the lateral compartment. Prominent degenerative change also noted in the patellofemoral compartment. Posteriorly there is a prominent calcific density as well as smaller calcific densities consistent with lucent intra-articular bodies. One of these may be the fabella. IMPRESSION: No fracture or joint effusion. 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 Loose intra-articular bodies also evident. DATA REPOSITORY: RADIATION DOSE DELIVERED:
== END 2025-03-10 11:42 ==
LOC: DI 11:22
PROVIDERS: PCP Nurse Practitioner Family; Visit Provider Nurse Practitioner Family
DX: S89.92XA Unspecified injury of left lower leg, initial encounter (principal); M85.89 Other specified disorders of bone density and structure, multiple sites; X58.XXXA Exposure to other specified factors, initial encounter
CPT/HCPCS: 73562